=== PATIENT | male | born 1980 | race Caucasian/White ===

== ENCOUNTER 2024-11-10 15:48 | Emergency (ER) | payer BC ==
[2024-11-10] MEDS: Acetaminophen 500 MG Tab PO ONE (17:12)
[2024-11-10] MEDS: Ketorolac 30 MG/ML SDV IM ONE (17:13)
== END 2024-11-10 17:51 | disposition home or self-care (01) ==
LOC: MW.ED 15:48
DX: S90.31XA Contusion of right foot, initial encounter (principal); Z75.8 Other problems related to medical facilities and other health care; Z88.0 Allergy status to penicillin; Z79.899 Other long term (current) drug therapy; W11.XXXA Fall on and from ladder, initial encounter; Y93.89 Activity, other specified
CPT/HCPCS: 73650; 96372; 99283; A9270; J1885